=== PATIENT | female | born 1990 | race Two or more races ===

== ENCOUNTER → 2020-04-05 | Outpatient (REF) | payer OTHER ==
[2020-04-05 13:49] LABS: HEMATOCRIT 36.8 % (36.0-47.0); HEMOGLOBIN 11.7 g/dl (12.0-15.5); MEAN CORPUSCULAR HGB CONC 31.8 g/dl (32.0-36.5); MEAN CORPUSCULAR VOLUME 84.8 fl (80.0-96.0); PLATELET COUNT, AUTOMATED 314 10^3/uL (150-450); RED BLOOD COUNT 4.34 10^6/uL (4.00-5.40); WHITE BLOOD COUNT 6.4 10^3/uL (4.0-10.0)
[2020-04-05 15:05] LABS: HEPATITIS C VIRUS ABY INDEX 0.2 INDEX (<0.8); HIV 1&2 SCREEN CENTAUR NEGATIVE (NEGATIVE)
== END ==
LOC: M PLALAB 10:43
PROVIDERS: ATTEND Obstetrics & Gynecology
DX: Z34.91 Encounter for supervision of normal pregnancy, unspecified, first trimester (principal)

== ENCOUNTER → 2020-06-02 | Outpatient (CLI) | payer OTHER ==
--- NOTE | 2020-06-02 14:55 | REP ---
INDICATION: ANATOMY. History of preeclampsia in prior . COMPARISON: None. TECHNIQUE: Transabdominal obstetric sonography. FINDINGS: Scanning through the gravid uterus demonstrates a viable single intrauterine gestation in variable lie. motion is observed and heart rate is recorded at 147 beats per minute. A anterior placenta is seen, grade 1, without evidence of placenta previa. Closed cervical length is measured at 4.0 cm transabdominally. No extrauterine abnormality is observed. Amniotic fluid is subjectively normal. The following anatomic structures are less than optimally seen today due to position: face and profile, four-chamber heart with left and right ventricular outflow tract views. The following additional anatomic structures are identified felt to be unremarkable: cranium and intracranial contents, nose and lips, diaphragm, left-sided stomach, abdominal wall cord insertion, kidneys and urinary bladder, spine, upper and lower extremities, 3 vessel cord. Biometry chart: BPD 4.2 cm, 18 weeks 4 days Head circumference 15.7 cm, 18 weeks 4 days Abdominal circumference 13.8 cm, 19 weeks 2 days Femur length 3.0 cm, 19 weeks 2 days Humeral length 2.9 cm, 19 weeks 2 days HC AC ratio normal 1.13 Cephalic index normal 0.73 Estimated weight 279 g, 0 lb 9 oz, 40th percentile for 19 weeks 2 days IMPRESSION: Viable single intrauterine gestation at 19 weeks 0 days by today's composite sonographic criteria. MIGDALIA by today's sonography October 27, 2020. No complication identified. heart and facial profile imaging less than optimally achieved due to position. <Electronically signed by Eliot Chase > 06/02/20 [id number]
== END ==
LOC: M WHC 11:05
PROVIDERS: ATTEND Advanced Practice Midwife
DX: O09.292 Supervision of pregnancy with other poor reproductive or obstetric history, second trimester (principal); Z3A.19 19 weeks gestation of pregnancy
CPT/HCPCS: 76811; G0463

== ENCOUNTER → 2020-07-26 | Outpatient (REF) | payer OTHER ==
[2020-07-26 14:50] LABS: HEMATOCRIT 35.3 % (36.0-47.0); HEMOGLOBIN 11.3 g/dl (12.0-15.5); MEAN CORPUSCULAR HEMOGLOBIN 27.5 pg (27.0-33.0); MEAN CORPUSCULAR VOLUME 85.9 fl (80.0-96.0); PLATELET COUNT, AUTOMATED 298 10^3/uL (150-450); RED BLOOD COUNT 4.11 10^6/uL (4.00-5.40); WHITE BLOOD COUNT 9.1 10^3/uL (4.0-10.0)
== END ==
LOC: M PLALAB 09:39
PROVIDERS: ATTEND Advanced Practice Midwife
DX: O09.299 Supervision of pregnancy with other poor reproductive or obstetric history, unspecified trimester (principal); Z3A.00 Weeks of gestation of pregnancy not specified
CPT/HCPCS: 36415; 82950; 85027; 86850; 86900; 86901; G0463

== ENCOUNTER → 2020-09-08 | Outpatient (CLI) | payer OTHER ==
--- NOTE | 2020-09-08 16:55 | REP ---
INDICATION: F/U ANATOMY. COMPARISON: 06/02/2020. TECHNIQUE: Real-time sonographic evaluation of the gravid uterus performed. FINDINGS: Estimated gestational age is33 weeks 2 days, EDC 10/25/2020. Today's measurements indicate somewhat less than expected growth. Presentation: Cephalic Placenta anterior, grade 1, without evidence of placenta previa. heart rate is recorded at 132 beats per minute. Amniotic fluid is subjectively normal. DOMINGO 18.6, normal 8.2-24.6. Closed cervical length is measured at 3.1 cm. Biometry chart: BPD: 78 mm, 31 weeks 3 days, 23rd percentile. HC: 298 mm, 33 weeks 0 days, 46th percentile AC: 273 mm, 31 weeks 3 days, 21st percentile Femur length: 62 mm, 32 weeks 0 days, 31st percentile HC to AC ratio: 1.09, normal range 0.95-1.13. Estimated weight: 1827g, less than 3rd percentile. anatomy: Visualized anatomy today includes profile, four-chamber heart, ventricular outflow tracts, which are all grossly unremarkable. IMPRESSION: Viable single intrauterine gestation as above. Somewhat less than expected growth. Follow-up suggested. <Electronically signed by Clinton Martinez > 09/08/20 [id number]
== END ==
LOC: M WHC 13:00
PROVIDERS: ATTEND Advanced Practice Midwife
DX: Z34.82 Encounter for supervision of other normal pregnancy, second trimester (principal)

== ENCOUNTER → 2020-09-19 | Outpatient (CLI) | payer OTHER ==
--- NOTE | 2020-09-19 12:48 | REP ---
INDICATION: BPP/CORD DOPPLERS COMPARISON: 09/08/2020 TECHNIQUE: Transabdominal obstetrical ultrasound with color Doppler evaluation. FINDINGS: Examination demonstrates a single live intrauterine in cephalic presentation. motion is identified by technologist. Placenta is noted anterior and grade 2 without evidence for placenta previa or abruption. Amniotic fluid volume is normal. Cervix measures 3.3 cm in length and appears closed.. Gestational age by LMP and 1st U/S 34 weeks 6 days with MIGDALIA 10/25/2020. FHR equals 127 beats per minute. DOMINGO: 7.9 cm (7.9-24.9) Biophysical profile score: 8/8 Umbilical artery SD ratio: 2.21, 2.14 (1.69-3.60) IMPRESSION: 1. Biophysical profile score is normal. 2. Amniotic fluid volume is lower limits of normal. 3. Umbilical SD ratios normal. <Electronically signed by Aric Brennan > 09/19/20 [id number]
== END ==
LOC: M WHC 11:32
PROVIDERS: ATTEND Advanced Practice Midwife
DX: O36.5930 Maternal care for other known or suspected poor fetal growth, third trimester, not applicable or unspecified (principal)

== ENCOUNTER → 2020-09-20 | Outpatient (REF) | payer OTHER | LOC: M SFHCWAGY 13:04 | PROVIDERS: ATTEND Advanced Practice Midwife | DX: O36.5930 Maternal care for other known or suspected poor fetal growth, third trimester, not applicable or unspecified (principal); Z3A.00 Weeks of gestation of pregnancy not specified ==

== ENCOUNTER 2020-09-27 13:53 | Outpatient (CLI) | payer OTHER ==
[~2020-09-27] VITALS: Ht 175.3 cm; Wt 104.0 kg
[2020-09-27 14:13] VITALS: BP 121/69
[2020-09-27] MEDS ORDERED: BETAMETHASONE SOLUSPAN 6MG/ML 5ML VIAL (J0702 PER 3MG) IM SCH (15:00)
--- NOTE | 2020-09-28 00:03 | IPN ---
PROGRESS NOTE DATE: 09/27/2020 SUBJECTIVE: Gladis is a 29-year-old, 5, para 1, 1, 2, 2, she is at 36 weeks gestation with an EDC of 10/25/2020 based on last menstrual period and confirmed by first trimester ultrasound. She presents to Labor and Delivery today for Betamethasone administration due to planned delivery at 37 weeks. She denies vaginal bleeding, leakage of fluid or painful contractions. Her fetus has been active. Her care was initiated at [facility] in the first trimester. Her course has been complicated by a history of severe preeclampsia with delivery at 32 weeks. She has been taking aspirin 81 mg daily. The current has a complication of intrauterine growth restriction with weight less than the third percentile as well as borderline oligohydramnios. The most recent DOMINGO on September 19, 2020 was 7.9 cm. PAST OBSTETRIC HISTORY: 1. #1 in 2013 spontaneous miscarriage. 2. #2 in February 2016 at 32 weeks gestation; 2 pound 12 ounce male, vaginal delivery following an induction for preeclampsia. 3. #3 in 2016 spontaneous miscarriage. 4. #4 in July 2018 at 38 weeks gestation; 7 pound 3 ounce male, following vacuum assisted vaginal delivery. 5. Current . OBSTETRIC LABS: Blood type is B+. Antibody screen is negative. Syphilis is nonreactive. Gonorrhea and Chlamydia are negative. Maternal Hepatitis B surface antigen negative. Hepatitis C antibody negative. HIV negative. Rubella immune. Gestational diabetic screening normal at 105. Urine culture with no growth. GB is positive. PAST MEDICAL HISTORY: Severe preeclampsia, childhood Varicella. PAST SURGICAL HISTORY: None. FAMILY HISTORY: Hypertension, diabetes. SOCIAL HISTORY: The patient is . She has a nonsmoker. She denies alcohol and drug use. She denies history of sexually transmitted infections and no history of abuse physical, sexual or emotional. CURRENT MEDICATIONS: vitamin. ALLERGIES: No known drug allergies. OBJECTIVE: Temperature 97.2, pulse 88, respirations 16, blood pressure 121/69. heart rate 125 with moderate variability, positive accelerations, negative decelerations. There is an occasional contraction ,to palpate mild. Sterile vaginal examination deferred. ASSESSMENT: Intrauterine at 36 weeks gestation, heart rate category 1, IUGR, borderline oligohydramnios. PLAN: Betamethasone injection. Return to labor and delivery tomorrow 24 hours after initial injection for Betamethasone injection #2. She is scheduled for induction of labor in one week at 37 weeks gestation. Signs and symptoms of labor, movement counts and signs were reviewed as well as access to care. Patient agrees with plan and will return to labor and delivery tomorrow for Betamethasone injection #2. SHEELA
[2020-09-28] MEDS ORDERED: PRENTAB9 PO (14:19)
--- NOTE | 2020-09-28 20:06 | IPNPDOC ---
Text Note Date of Service The patient was seen on 09/28/20. NOTE Labor and Delivery Triage Note: S: 29-year-old 5 para 2 at 36 weeks 1 day with intrauterine growth restriction and borderline oligohydramnios presents for her second dose of betamethasone. She is a well without any issues. O: vss, AF no ctx Cat 1 tracing -12.5 mg betamethasone given without any issues A/P: 29-year-old 5 para 2 at 36 weeks 1 day with intrauterine growth [place] and borderline oligohydramnios status post completed betamethasone series reassuring status -home with PTL precautions and FKCs. -f/u at nxt OB appt /IOL Candy Joaquin MD VS,Anabell, I+O VS, [place], I+O Vital Signs Date Time Temp Pulse Resp B/P (MAP) Pulse Ox O2 Delivery O2 Flow Rate FiO2 09/27/20 14:13 97.2 88 16 121/69 (86) CANDY JOAQUIN MD. Sep 28, 2020 20:06
== END 2020-09-27 15:00 | disposition home or self-care (01) ==
LOC: M LDO 13:53
PROVIDERS: ATTEND Advanced Practice Midwife
DX: O36.5930 Maternal care for other known or suspected poor fetal growth, third trimester, not applicable or unspecified (principal); Z3A.36 36 weeks gestation of pregnancy; O41.03X0 Oligohydramnios, third trimester, not applicable or unspecified; Z87.59 Personal history of other complications of pregnancy, childbirth and the puerperium; Z87.51 Personal history of pre-term labor; Z79.82 Long term (current) use of aspirin
CPT/HCPCS: 59025; 96372; G0378; G0463; J0702

== ENCOUNTER 2020-09-28 14:05 | Outpatient (CLI) | payer OTHER ==
[~2020-09-28] VITALS: Ht 175.3 cm; Wt 103.0 kg
[2020-09-28] MEDS ORDERED: PRENTAB9 PO (14:19)
[2020-09-28 14:28] VITALS: BP 118/64
[2020-09-28 16:02] VITALS: BP 124/73
[2020-09-28] MEDS ORDERED: BETAMETHASONE SOLUSPAN 6MG/ML 5ML VIAL (J0702 PER 3MG) IM ONE (16:16)
[2020-09-28 16:41] VITALS: BP 127/74
== END 2020-09-28 16:44 | disposition home or self-care (01) ==
LOC: M LDO 14:05
PROVIDERS: ATTEND Obstetrics & Gynecology
DX: O36.5930 Maternal care for other known or suspected poor fetal growth, third trimester, not applicable or unspecified (principal); Z3A.36 36 weeks gestation of pregnancy; O41.03X0 Oligohydramnios, third trimester, not applicable or unspecified; Z87.51 Personal history of pre-term labor; Z79.82 Long term (current) use of aspirin
CPT/HCPCS: 59025; 76816; 76819; 76820; 96372; G0378; G0463; J0702

== ENCOUNTER → 2020-09-28 | Outpatient (CLI) | payer OTHER ==
[~2020-09-28] MED LIST: PRENTAB9 PO
--- NOTE | 2020-09-29 05:23 | REP ---
INDICATION: BPP/CORD DOPPLERS COMPARISON: 09/19/2020 TECHNIQUE: Transabdominal obstetrical ultrasound with color Doppler evaluation. FINDINGS: Examination demonstrates a single live intrauterine in cephalic presentation. motion is identified by technologist. Placenta is noted anterior and grade 2 without evidence for placenta previa or abruption. Amniotic fluid volume is decreased. Cervix measures 4.0 cm in length and appears closed.. Selected gestational age: 36 weeks 1 day with MIGDALIA 10/25/2020. Gestational age by current measurements 35 weeks 3 days with MIGDALIA 10/30/2020. FHR equals 130 beats per minute. BPD: 8.5 cm at 34 weeks 1 day HC: 32.1 cm at 36 weeks 2 days AC: 31.8 cm at 35 weeks 5 days FL: 6.9 cm at 35 weeks 2 days HL: 6.2 cm at 36 weeks 1 day HC/AC: 1.01 Estimated weight 2686 grams (33rdpercentile). DOMINGO: 6.9 cm (7.7-24.8) Biophysical profile score: 8/8 Umbilical artery SD ratio: 1.82 (1.63-3.50) IMPRESSION: 1. Single live intrauterine in cephalic presentation demonstrating appropriate estimated weight. 2. Biophysical profile score 8/8 3. oligohydramnios (DOMINGO: 6.9 cm) <Electronically signed by Aric Brennan > 09/29/20 0519
== END ==
LOC: M WHC 11:28
PROVIDERS: ATTEND Advanced Practice Midwife
DX: O36.5930 Maternal care for other known or suspected poor fetal growth, third trimester, not applicable or unspecified (principal); O41.03X1 Oligohydramnios, third trimester, fetus 1; Z3A.35 35 weeks gestation of pregnancy

== ENCOUNTER 2020-10-04 09:33 | Inpatient (IN) | payer OTHER ==
[2020-10-04] VITALS (37 sets, daily range): BP systolic 103–168; BP diastolic 58–115
[~2020-10-04] VITALS: Ht 175.3 cm; Wt 102.6 kg
[2020-10-04] MEDS ORDERED: LACTATED RINGER'S 1000 ML IV STA (10:26)
[2020-10-04] MEDS ORDERED: METHYLERGONOVINE MALEATE 0.2 MG/ML VIAL (J2210) IM PRN (10:30)
[2020-10-04] MEDS ORDERED: LIDOCAINE 1% MDV 20ML VIAL INFIL PRN (10:30)
[2020-10-04] MEDS ORDERED: OXYTOCIN INJ 10 UNITS/ML VIAL (J2590) IM PRN (10:30)
[2020-10-04] MEDS ORDERED: OXYTOCIN DRIP 30 UNITS in IV 1 EA IV PRN ×4 (10:30)
[2020-10-04] MEDS ORDERED: PENICILLIN G POTASSIUM IV 5 MU in D5W MINI-BAG PLUS 100 ML IV STA (10:39)
[2020-10-04] MEDS ORDERED: miSOPROStol 50MCG 1/2 TABLET PO SCH (11:00)
[2020-10-04 11:01] LABS: HEMATOCRIT 30.9 % (36.0-47.0); HEMOGLOBIN 9.9 g/dl (12.0-15.5); PLATELET COUNT, AUTOMATED 330 10^3/uL (150-450); RED BLOOD COUNT 3.96 10^6/uL (4.00-5.40); WHITE BLOOD COUNT 11.2 10^3/uL (4.0-10.0)
--- NOTE | 2020-10-04 11:20 | HPE ---
HISTORY AND PHYSICAL DATE OF ADMISSION: 10/04/2020 HISTORY OF PRESENT ILLNESS: Gladis is a 30-year-old 5 para 1-1-2-2, she is at 37 weeks gestation with an EDC of 10/25/2020 based on last menstrual period and confirmed by first trimester ultrasound. She presents to Labor and Delivery today for induction of labor due to oligohydramnios. She had been being cared for a growth restricted fetus which has resolved as of 09/28/2020. She also has a history of severe preeclampsia with a pre-term delivery of 32 weeks gestation. [facility] was [facility] at [facility]. She has undergone antepartal testing and growth ultrasounds in the third trimester. Most recent ultrasound 09/28/2020: Cephalic presentation, EFW of 2686 grams, 33rd percentile with an DOMINGO of 6.9, S/D ratio 1.8. OBSTETRIC HISTORY: #1: 2013, spontaneous miscarriage. #2: 03/02/2016, 32 weeks, 2 pound, 12 ounce male, vaginal delivery, preeclampsia. In 2017, spontaneous miscarriage, August 01, 2018: 38 weeks, 7 pound, 3 ounce male, vacuum assisted vaginal delivery. OBSTETRIC LABS: B positive, antibody screen negative, syphilis negative, gonorrhea and chlamydia negative, hepatitis B surface antigen negative, hepatitis C antibody non-reactive, HIV negative, rubella immune, gestational diabetic screening normal at 105, urine culture no growth, GBS is positive. PAST MEDICAL HISTORY: Preeclampsia, childhood varicella. PAST SURGICAL HISTORY: None. FAMILY HISTORY: Hypertension, diabetes. SOCIAL HISTORY: The patient is . She is a nonsmoker. She denies alcohol and drug use. No history of sexually transmitted infections. She does deny history of abuse, physical, sexual and emotional. CURRENT MEDICATIONS: 1. vitamin. ALLERGIES: No known drug allergies. OBJECTIVE: Temperature is 98.1, pulse is 116, respirations are 16, blood pressure 134/78. The heart rate is 140 with moderate variability, positive accelerations, negative decelerations. Her abdomen is gravid, cephalic presentation with an estimated weight of 2700 grams. Sterile vaginal exam: 1 cm dilated, 50% effaced, -3 station, posterior, soft, no show with the exam. ASSESSMENT: Intrauterine at 37 weeks, heart rate Category 1, oligohydramnios, beta complete. PLAN: For consult with Dr. Magdi Horan, admit the patient to Labor and Delivery, IV fluid bolus then saline lock, out of bed ad nataly, regular diet at this time, routine laboratories. The patient does request an epidural when she is uncomfortable with her labor. I reviewed risks, benefits and alternatives for induction of labor. The patient and her 's questions have been answered. I plan to start Misoprostol 50 mcg p.o. q. 4 hours for cervical ripening, will likely start Pitocin, may consider assisted rupture of membranes to augment her labor, may consider Cook catheter as well. She has been verbally consented for emergency surgery and blood products if they are necessary. I do anticipate cervical ripening, active labor and a vaginal delivery. MTDD
[2020-10-04] MEDS: PENICILLIN G POTASSIUM IV 2.5 MU in IV 1 EA IV SCH ×2 (14:57→18:44)
[2020-10-04] MEDS ORDERED: OXYTOCIN DRIP 30 UNITS in IV 1 EA IV SCH (15:20)
[2020-10-04] MEDS: LR 1,000 ML IV SCH ×2 (16:41→18:38)
[2020-10-04] MEDS ORDERED: FENTANYL 2MCG/ML ROPIVACAINE 0.2% IN 0.9% NACL 100ML IVBAG As Ordered ONE (17:50)
[2020-10-04] MEDS ORDERED: FENTANYL/ROPIVACAINE/NACL BAG 100 ML EPIDURAL SCH (19:20)
[2020-10-04] MEDS ORDERED: EPIDURAL COMMENT XX SCH (19:20)
[2020-10-04] MEDS ORDERED: REFRIGERATOR IV KEYS XX PRN (19:20)
[2020-10-04] MEDS ORDERED: LACTATED RINGER'S 1000 ML IV PRN (19:20)
[2020-10-04] MEDS ORDERED: EPIDURAL/PCA KEYS XX PRN (19:20)
[2020-10-04] MEDS ORDERED: ONDANSETRON 4MG/2ML VIAL IV PRN (19:20)
[2020-10-04] MEDS ORDERED: ePHEDrine SULFATE 25 MG/5 ML(5MG/ML) SYRINGE IV PRN (19:20)
[2020-10-04] MEDS ORDERED: NALOXONE INJ 0.4MG/1ML VIAL (J2310 PER 1MG) IV PRN (19:20)
[2020-10-04] MEDS ORDERED: diphenhydrAMINE 50MG/ML VIAL (J1200) IV PRN (19:20)
[2020-10-04] MEDS ORDERED: DIBUCAINE 1% OINTMENT 30GM TOP PRN (22:30)
[2020-10-04] MEDS ORDERED: MEASLES,MUMPS,RUBELLA VACCINE INJ (MMR-II) (90707) SC SCH (22:30)
[2020-10-04] MEDS ORDERED: DOCUSATE SODIUM 100MG CAPSULE PO PRN (22:30)
[2020-10-04] MEDS ORDERED: ACETAMINOPHEN TAB 650MG DOSE (2X325MG) PO PRN (22:30)
[2020-10-04] MEDS ORDERED: IBUPROFEN 600MG TAB PO PRN (22:30)
[2020-10-04] MEDS ORDERED: METHYLERGONOVINE MALEATE 0.2 MG TAB PO PRN (22:30)
[2020-10-04] MEDS ORDERED: RHOGAM 300 MCG (1500 IU) INJ (J2790) IM SCH (22:30)
[2020-10-04] MEDS ORDERED: METHYLERGONOVINE MALEATE 0.2 MG/ML VIAL (J2210) IM ONE (22:45)
--- NOTE | 2020-10-04 23:30 | DN ---
DELIVERY NOTE DATE OF DELIVERY: 10/04/2020 TIME OF : 2052 GENDER: Male APGARS: 9 and 9 LACERATIONS: ANESTHESIA: ESTIMATED BLOOD LOSS: 300 mL COUNTS: Correct and verified. DESCRIPTION OF DELIVERY: The patient is a 30-year-old 5, para 2-1-2-3 now, who was admitted to labor and delivery for induction of labor due to oligohydramnios. Misoprostol and I.V. Pitocin were used and labor ensued. She did utilize an epidural for her labor coping. She reached complete dilation at 2047. She had assisted rupture of membranes for a large amount of clear fluid at 2047. She pushed to a normal spontaneous vaginal delivery of a live male infant in direct OP position with restitution to LOT position at 2052. There was no nuchal cord noted. The shoulders delivered spontaneously and the corpus immediately followed. The male was placed on the maternal abdomen, crying and active. The cord was clamped x2 once pulsations ceased and cut by the father of the baby under my direction. A spontaneous expulsion with intact placenta with three-vessel cord by Schultze mechanism was at 2055. Uterine hemostasis was achieved with I.V. Pitocin rapid infusion and uterine fundal massage as well as Methergine 0.2 mg I.M. Estimated blood loss was 300 mL. Perineum and vagina inspected and noted to be intact. [place] male weighed 2670 grams, 5 pounds 14 ounces. Apgars were 9 and 9. Mom is going to breastfeed her son and the family have named him Gilbert. At the close of delivery, lap counts, needle counts, and instrument counts were correct and verified.
[2020-10-04] MEDS: ACETAMINOPHEN 500 MG TAB PO PRN (23:42)
[2020-10-05 01:01] VITALS: BP 117/63
[2020-10-05 01:03] VITALS: BP 132/68
[2020-10-05 06:14] VITALS: BP 124/84
[2020-10-05] MEDS: IBUPROFEN 800 MG TAB PO PRN ×2 (06:50→15:19)
[2020-10-05] MEDS: PRENATAL VITAMINS CHEWABLE TABLET PO SCH (09:30)
[2020-10-05] MEDS: ACETAMINOPHEN 500 MG TAB PO PRN (13:19)
[2020-10-05] MEDS ORDERED: LR 1,000 ML IV ONE (19:05)
[2020-10-05 19:17] VITALS: BP 127/84
[2020-10-06 06:07] VITALS: BP 112/57
[2020-10-06 09:00] VITALS: BP 127/84
[2020-10-06] MEDS: PRENATAL VITAMINS CHEWABLE TABLET PO SCH (09:41)
== END 2020-10-06 11:35 | disposition home or self-care (01) | DRG 807 ==
LOC: M LDI 09:33 → M OBS 10-05 00:22
PROVIDERS: ADMIT Advanced Practice Midwife; ATTEND Advanced Practice Midwife
PROC: 10E0XZZ Delivery of Products of Conception, External Approach (ICD-10-PCS; principal; 2020-10-04)
PROC: 3E033VJ Introduction of Other Hormone into Peripheral Vein, Percutaneous Approach (ICD-10-PCS; 2020-10-04)
PROC: 3E0DXGC Introduction of Other Therapeutic Substance into Mouth and Pharynx, External Approach (ICD-10-PCS; 2020-10-04)
DX: O41.03X0 Oligohydramnios, third trimester, not applicable or unspecified (principal); Z37.0 Single live birth; Z3A.37 37 weeks gestation of pregnancy